=== PATIENT | female | born 1980 | race Caucasian/White ===

== ENCOUNTER → 2017-02-20 | Outpatient (CLI) | payer OTHER ==
[~2017-02-20] MED LIST: AC325T PO; APIX5TAB PO; AZIT250T5 PO; CEFD300C PO; FERR325T36 PO
[2017-02-20 10:53] LABS: BASOPHILS % (AUTO) 1 % (0-2); EOSINOPHILS # (AUTO) 0.9 10^3uL; EOSINOPHILS % (AUTO) 8 % (0-4); LYMPHOCYTES # (AUTO) 3.5 X10^3; MEAN CORPUSCULAR HEMOGLOBIN 29.2 PG (26.0-34.0); MEAN CORPUSCULAR HGB CONC 32.1 g/dL (31.0-37.0); MEAN CORPUSCULAR VOLUME 91 FL (80-100); MONOCYTES # (AUTO) 1.2 X10^3; MONOCYTES % (AUTO) 11 % (3-11); NEUTROPHILS # (AUTO) 5.2 X10^3; NEUTROPHILS % (AUTO) 48 % (51-67); WHITE BLOOD COUNT 10.91 10^3uL (4.0-11.0)
[2017-02-20 11:07] LABS: ALBUMIN 4.3 g/dL (3.4-5.0); ANION GAP 14.8 MEQ/L (3-15); CALCULATED IONIZED CALCIUM 3.7 mg/dL (3.8-4.6); TOTAL PROTEIN 8.9 g/dL (6.4-8.5)
[2017-02-20 11:19] LABS: BILIRUBIN,URINE Negative (Negative); CLARITY,URINE Clear; GLUCOSE, URINE (UA) Negative (Negative); LEUKOCYTE ESTERASE ,URINE Negative (Negative); UROBILINOGEN,URINE 0.2 mg/dL (0.2-1.0)
[2017-02-20 11:21] LABS: COLOR,URINE Light Yellow
[2017-02-20 11:30] LABS: PLATELET COUNT 615 10^3uL (150-450)
[2017-02-20 12:07] LABS: ERYTHROCYTE SEDIMENTATION RT* 33 mm/hr (0-21)
[2017-02-20 18:59] LABS: IRON 91 ug/dL (50-170); UNBOUND IRON CONTENT 190 ug/dl (126-382)
[2017-02-20 19:32] LABS: VITAMIN B 12 1436 pg/mL (213-816)
== END ==
LOC: LAB 10:20
PROVIDERS: ATTEND Family Medicine
DX: D64.89 Other specified anemias (principal); R07.89 Other chest pain; R00.2 Palpitations; D72.828 Other elevated white blood cell count; M11.872 Other specified crystal arthropathies, left ankle and foot
CPT/HCPCS: 36415; 80053; 81003; 82607; 82746; 83010; 83540; 83550; 83615; 84443; 85025; 85652; 86038; 86140

== ENCOUNTER → 2017-02-21 | Outpatient (CLI) | payer OTHER ==
[2017-02-23 13:38] LABS: FECAL FAT WEIGHT 16 g
[2017-02-23 14:00] LABS: Fecal Fat Hrs Random h (())
== END ==
LOC: LAB 14:04
PROVIDERS: ATTEND Family Medicine
DX: R19.5 Other fecal abnormalities (principal)
CPT/HCPCS: 82710; 87507